=== PATIENT | female | born 1940 | race Caucasian/White ===

== ENCOUNTER 2021-08-16 11:25 | Inpatient (IN) ==
[~2021-08-16 11:25] MED LIST: Buffered Lidocaine 1% SYRIN 1 ml INTRADERM ONE; Ertapenem 1 GM in NS 0.9% 50 ML BAG IVPB SCH; Lactated Ringers 1000 ml BAG 1,000 ML IV SCH; Scopolamine 1 mg/72hr PATCH TRANSDERM ONE
[2021-08-16] MEDS ORDERED: Heparin 5000 UNITS/ML 1 mL VIAL ONE (11:53)
[2021-08-16] MEDS ORDERED: Scopolamine 1 mg/72hr PATCH ONE (11:53)
[2021-08-16] MEDS ORDERED: Lidocaine 2% PF 5 ML VIAL ONE (13:02)
[2021-08-16] MEDS ORDERED: fentaNYL 100 mcg/2 ml 50 MCG/ML VIAL ONE ×3 (13:02→18:04)
[2021-08-16] MEDS ORDERED: Propofol 10 MG/ML 20 ML BTL ONE (13:02)
[2021-08-16] MEDS ORDERED: Bupivacaine 0.25% w/EPI 10 ML SDV ONE (13:03)
[2021-08-16] MEDS ORDERED: Lidocaine 4 MG/ML IV PREMIX 2,000 MG/500 ML BAG IV ONE (13:15)
[2021-08-16] MEDS ORDERED: Rocuronium 50 mg VIAL 10 mg/ml 5 ml VIAL (50 mg) ONE (13:15)
[2021-08-16] MEDS ORDERED: Etomidate 20 mg/10 ml 2 MG/ML 10 ml VIAL ONE (14:08)
[2021-08-16] MEDS ORDERED: EPHEDrine (Pressors) 50 MG/ML VIAL ONE (15:33)
[2021-08-16] MEDS ORDERED: Glycopyrrolate IV 0.2 MG/ML 1 ML VIAL ONE (16:46)
[2021-08-16] MEDS ORDERED: Dexamethasone IV 4 MG/ML VIAL 1 ml VIAL ONE (17:13)
[2021-08-16] MEDS ORDERED: Acetaminophen IV 1 GM/100ML 100 ML IV ONE (17:13)
[2021-08-16] MEDS ORDERED: Ondansetron 4 mg VIAL 2 MG/ML 2 ml VIAL ONE (17:13)
[2021-08-16] MEDS ORDERED: Ondansetron 4 mg VIAL 2 MG/ML 2 ml VIAL IV PRN ×2 (17:27→17:55)
[2021-08-16] MEDS ORDERED: Albuterol/Ipratropium NEB.SOL (2.5/0.5 MG) 3 ML NEB.SOLN INH PRN (17:31)
[2021-08-16] MEDS ORDERED: Albuterol HFA INHALER 8 gm MDI INH PRN (17:40)
[2021-08-16] MEDS ORDERED: HYDROmorphone 1 MG/1 ML SYRINGE IV PRN (17:55)
[2021-08-16] MEDS ORDERED: diPHENhydraMINE IV 50 MG/ML 1 ml VIAL (BENADRYL) IV PRN (17:55)
[2021-08-16] MEDS ORDERED: Naloxone 0.4 mg VIAL 0.4 mg/ml 1 ml VIAL IV PRN (17:55)
[2021-08-16] MEDS ORDERED: DiMENhydriNATE IV 50 mg/ml 1 ml VIAL IV PUSH PRN (17:55)
[2021-08-16] MEDS: fentaNYL 100 mcg/2 ml 50 MCG/ML VIAL IV PRN ×2 (18:05→18:33)
[2021-08-16] MEDS ORDERED: HYDROmorphone 0.5 MG/0.5 ML SYRINGE IV SLOW PU PRN (20:11)
[2021-08-16] MEDS ORDERED: Albuterol 2.5mg/3 ml (0.083%) NEB.SOLN INH PRN (21:32)
[2021-08-16] MEDS: Acetaminophen IV 1 GM/100ML 100 ML IV SCH (23:35)
[2021-08-17] MEDS: Acetaminophen IV 1 GM/100ML 100 ML IV SCH ×3 (06:19→22:20)
[2021-08-17 08:01] LABS: ABS Lymphocytes 1.3 10^3/ul (1.0-4.8); ABS Monocytes 0.6 10^3/ul (0-0.8); ABS Neutrophils 5.9 10^3/ul (1.5-7.7); Eosinophil % 0.2 %; Hematocrit 27 % (35-47); Hemoglobin 8.6 g/dL (12.0-16.0); Lymphocyte % 16.4 %; Mean Corpuscular HGB Conc 32 g/dL (31-36); Mean Corpuscular Hemoglobin 27 pg (27-31); Mean Corpuscular Volume 84 fL (80-97); Mean Platelet Volume 7.3 fL (7.4-10.4); Platelet Count 278 10^3/uL (150-450); Red Blood Count 3.19 10^6 /uL (3.70-4.87); Red Cell Distribution Width 22 % (10-15); White Blood Count 7.8 10^3/uL (3.5-10.8)
[2021-08-17] MEDS: Mometasone/Formoter 100/5 MDI INH SCH ×3 (08:44→20:01)
[2021-08-17 08:55] LABS: Calcium 8.3 mg/dL (8.6-10.3); Potassium 3.2 mmol/L (3.5-5.0); eGFR CKD-EPI 69.6 (>60)
[2021-08-17] MEDS: Enoxaparin 30 MG/0.3 ML SYR SUBCUT SCH (10:04)
[2021-08-17] MEDS: NS 0.9% 500 ml BAG 500 ML IV ONE ×2 (19:08→21:48)
[2021-08-17] MEDS ORDERED: D5W 1/2 NS KCl 20 meq 1000 ml 1,000 ML IV SCH (20:00)
[2021-08-18] MEDS: Acetaminophen IV 1 GM/100ML 100 ML IV SCH ×3 (05:24→22:20)
[2021-08-18 06:00] LABS: ABS Eosinophils 0.2 10^3/ul (0-0.6); ABS Lymphocytes 1.4 10^3/ul (1.0-4.8); ABS Monocytes 0.6 10^3/ul (0-0.8); ABS Neutrophils 6.6 10^3/ul (1.5-7.7); Eosinophil % 1.9 %; Hematocrit 26 % (35-47); Hemoglobin 8.3 g/dL (12.0-16.0); Mean Corpuscular HGB Conc 32 g/dL (31-36); Mean Corpuscular Hemoglobin 27 pg (27-31); Mean Corpuscular Volume 85 fL (80-97); Mean Platelet Volume 7.5 fL (7.4-10.4); Platelet Count 263 10^3/uL (150-450); Red Blood Count 3.04 10^6 /uL (3.70-4.87); Red Cell Distribution Width 22 % (10-15); White Blood Count 8.8 10^3/uL (3.5-10.8)
[2021-08-18 07:09] LABS: Calcium 7.9 mg/dL (8.6-10.3); Potassium 3.2 mmol/L (3.5-5.0); eGFR CKD-EPI 64.2 (>60)
[2021-08-18] MEDS: Mometasone/Formoter 100/5 MDI INH SCH ×2 (08:49→20:20)
[2021-08-18] MEDS: Enoxaparin 30 MG/0.3 ML SYR SUBCUT SCH (09:58)
[2021-08-18] MEDS: Potassium Chlor 20 meq TAB.ER PO SCH (20:22)
[2021-08-19 05:35] LABS: ABS Eosinophils 0.1 10^3/ul (0-0.6); ABS Lymphocytes 1.7 10^3/ul (1.0-4.8); ABS Monocytes 0.7 10^3/ul (0-0.8); Eosinophil % 1.6 %; Hematocrit 25 % (35-47); Lymphocyte % 19.5 %; Mean Corpuscular HGB Conc 32 g/dL (31-36); Mean Corpuscular Hemoglobin 28 pg (27-31); Mean Corpuscular Volume 86 fL (80-97); Mean Platelet Volume 7.8 fL (7.4-10.4); Platelet Count 245 10^3/uL (150-450); Red Blood Count 2.89 10^6 /uL (3.70-4.87); Red Cell Distribution Width 21 % (10-15); White Blood Count 8.5 10^3/uL (3.5-10.8)
[2021-08-19 05:50] LABS: Calcium 7.7 mg/dL (8.6-10.3); Potassium 3.7 mmol/L (3.5-5.0); eGFR CKD-EPI 64.2 (>60)
[2021-08-19] MEDS: Acetaminophen IV 1 GM/100ML 100 ML IV SCH (05:52)
[2021-08-19] MEDS: Mometasone/Formoter 100/5 MDI INH SCH ×2 (07:59→19:49)
[2021-08-19] MEDS: Potassium Chlor 20 meq TAB.ER PO SCH ×2 (09:38→21:08)
[2021-08-19] MEDS: Enoxaparin 30 MG/0.3 ML SYR SUBCUT SCH (09:39)
[2021-08-20 07:47] VITALS: BP 112/70
[2021-08-20] MEDS: Mometasone/Formoter 100/5 MDI INH SCH (07:54)
[2021-08-20] MEDS: Potassium Chlor 20 meq TAB.ER PO SCH (08:49)
[2021-08-20] MEDS: Enoxaparin 30 MG/0.3 ML SYR SUBCUT SCH (10:08)
== END 2021-08-20 10:45 | disposition home or self-care (01) | DRG 331 ==
LOC: AA 11:25 → SSU 19:57
PROVIDERS: ADMIT Surgery; ATTEND Surgery

== ENCOUNTER 2023-08-16 11:10 | Inpatient (IN) ==
[2023-08-16 11:52] LABS: Venous Bicarbonate HCO3 28.4 mmol/L (24-28)
[2023-08-16 11:56] LABS: ABS Lymphocytes 0.9 10^3/uL (1.0-4.8); ABS Monocytes 1.3 10^3/uL (0.0-0.9); ABS Neutrophils 17.3 10^3/uL (1.5-7.6); ABS Nucleated RBC 0.01 10^3/ul; Hematocrit 33.1 % (35-45); Hemoglobin 10.8 g/dL (11.5-14.3); Lymphocyte % 4.7 %; Mean Corpuscular Hemoglobin 29.1 pg (27-33); Mean Corpuscular Hgb Conc 32.6 g/dL (31-36); Mean Corpuscular Volume 89.1 fL (80-97); Mean Platelet Volume 8.2 fL (7.5-11.2); Platelet Count 379 10^3/uL (150-450); Red Blood Count 3.71 10^6/uL (3.63-4.92); Red Cell Distribution Width 14.9 % (12-17); White Blood Count 19.6 10^3/uL (3.8-11.8)
[2023-08-16 13:20] LABS: Albumin/Globulin Ratio 0.8 (1-3); Calcium 8.7 mg/dL (8.6-10.3); Creatinine, Serum 0.94 mg/dL (0.51-0.95); Globulin 3.9 g/dL (2-4); Potassium 3.7 mmol/L (3.5-5.0); Total Bilirubin 0.7 mg/dL (0.2-1.0); Total Protein 6.9 g/dL (6.4-8.9)
[2023-08-16 13:30] LABS: High Sensitivity Troponin 1 Hr 11 pg/mL (<15)
[2023-08-16] MEDS: Cefepime 2 GM in Dextrose 2 GM/50 ML BAG IV ONE (13:37)
[2023-08-16] MEDS: Azithromycin 500 mg/250 ml NS 500 MG/250 ML BAG IVPB ONE (13:37)
[2023-08-16] MEDS: NS 0.9% 500 ml BAG 500 ML IV ONE (14:22)
[2023-08-16 16:41] LABS: Urine Appearance Turbid; Urine Bilirubin Negative (Negative); Urine Blood Trace (Negative); Urine Color Yellow; Urine Glucose Negative (Negative); Urine Ketones Negative (Negative); Urine Nitrite Negative (Negative); Urine Protein 1+ (>=30 mg/dL) (Negative); Urine Specific Gravity 1.026 (1.002-1.030); Urine Urobilinogen Negative (Negative); Urine pH 5.5 (5.0-8.0)
[2023-08-16 16:49] LABS: Urine Bacteria Absent /HPF (Absent); Urine Red Blood Cell 1+(3-5/hpf) /HPF (0-Trace); Urine Squamous Epithelial Cell Present /HPF (Absent); Urine White Blood Cell Trace(0-5/hpf) /HPF (0-Trace)
[2023-08-16] MEDS ORDERED: Albuterol HFA INHALER 8 gm MDI INH PRN (20:57)
[2023-08-16] MEDS: Simvastatin 20 mg TAB (NF) PO SCH (21:49)
[2023-08-17] MEDS: Acetaminophen IV 1 GM/100ML 1,000 MG/100 ML BAG IV PRN (00:25)
[2023-08-17 06:08] LABS: ABS Lymphocytes 1.4 10^3/uL (1.0-4.8); ABS Monocytes 1.3 10^3/uL (0.0-0.9); Eosinophil % 0.2 %; Hematocrit 30.8 % (35-45); Hemoglobin 10.4 g/dL (11.5-14.3); Lymphocyte % 7.7 %; Mean Corpuscular Hemoglobin 30.2 pg (27-33); Mean Corpuscular Hgb Conc 33.8 g/dL (31-36); Mean Corpuscular Volume 89.4 fL (80-97); Mean Platelet Volume 7.7 fL (7.5-11.2); Platelet Count 421 10^3/uL (150-450); Red Blood Count 3.44 10^6/uL (3.63-4.92); Red Cell Distribution Width 14.8 % (12-17); White Blood Count 17.7 10^3/uL (3.8-11.8)
[2023-08-17 06:21] LABS: Albumin 2.8 g/dL (3.2-5.2); Albumin/Globulin Ratio 0.7 (1-3); Calcium 8.6 mg/dL (8.6-10.3); Creatinine, Serum 0.86 mg/dL (0.51-0.95); Globulin 3.9 g/dL (2-4); Potassium 3.5 mmol/L (3.5-5.0); Total Bilirubin 0.5 mg/dL (0.2-1.0); Total Protein 6.7 g/dL (6.4-8.9); eGFR CKD-EPI 67.8 (>60)
[2023-08-17] MEDS: CMCS:FLUTICAS/UMECLI/VILANT 100-62.5-25 MDI (NF) INH SCH (07:39)
[2023-08-17] MEDS: Enoxaparin 40 MG/0.4 ML SYR SUBCUT SCH (09:49)
[2023-08-17] MEDS: Spironolactone/HCTZ 25-25 mg PO SCH (09:53)
[2023-08-17 10:48] LABS: Hepatitis B Surface Antigen Nonreactive (Nonreactive)
[2023-08-17 10:53] LABS: Hepatitis A Ab IgM Negative (Negative); Hepatitis B Core IgM Nonreactive (Nonreactive)
[2023-08-17 11:05] LABS: Hepatitis C Antibody Negative (Negative)
[2023-08-17] MEDS: cefTRIAXone 1 gm/50 mL D5W 1 GM/50 ML BAG IV SCH (15:03)
[2023-08-18 07:15] LABS: ABS Eosinophils 0.1 10^3/uL (0.0-0.5); ABS Lymphocytes 1.7 10^3/uL (1.0-4.8); ABS Monocytes 1.1 10^3/uL (0.0-0.9); Eosinophil % 0.4 %; Hemoglobin 10.3 g/dL (11.5-14.3); Lymphocyte % 10.6 %; Mean Corpuscular Hemoglobin 29.5 pg (27-33); Mean Corpuscular Hgb Conc 33.2 g/dL (31-36); Mean Corpuscular Volume 88.8 fL (80-97); Mean Platelet Volume 7.6 fL (7.5-11.2); Platelet Count 448 10^3/uL (150-450); Red Blood Count 3.49 10^6/uL (3.63-4.92); Red Cell Distribution Width 14.8 % (12-17); White Blood Count 15.9 10^3/uL (3.8-11.8)
[2023-08-18 07:35] LABS: Albumin 2.8 g/dL (3.2-5.2); Albumin/Globulin Ratio 0.7 (1-3); Calcium 8.7 mg/dL (8.6-10.3); Creatinine, Serum 0.67 mg/dL (0.51-0.95); Potassium 3.8 mmol/L (3.5-5.0); Total Bilirubin 0.4 mg/dL (0.2-1.0); Total Protein 6.8 g/dL (6.4-8.9); eGFR CKD-EPI 87.8 (>60)
[2023-08-18] MEDS: Morphine 2 MG/ML SYRINGE IV ONE (21:58)
[2023-08-19 06:39] LABS: ABS Eosinophils 0.1 10^3/uL (0.0-0.5); ABS Lymphocytes 1.2 10^3/uL (1.0-4.8); ABS Monocytes 0.9 10^3/uL (0.0-0.9); ABS Neutrophils 10.3 10^3/uL (1.5-7.6); ABS Nucleated RBC 0.02 10^3/ul; Eosinophil % 0.8 %; Hematocrit 31.9 % (35-45); Hemoglobin 10.4 g/dL (11.5-14.3); Lymphocyte % 9.7 %; Mean Corpuscular Hemoglobin 29.5 pg (27-33); Mean Corpuscular Hgb Conc 32.6 g/dL (31-36); Mean Corpuscular Volume 90.5 fL (80-97); Mean Platelet Volume 7.5 fL (7.5-11.2); Nucleated Red Blood Cells % 0.2 %/100WBC (0.0-0.8); Platelet Count 357 10^3/uL (150-450); Red Blood Count 3.53 10^6/uL (3.63-4.92); Red Cell Distribution Width 15.5 % (12-17); White Blood Count 12.6 10^3/uL (3.8-11.8)
[2023-08-19 07:05] LABS: Calcium 8.5 mg/dL (8.6-10.3); Creatinine, Serum 0.7 mg/dL (0.51-0.95); Potassium 4.2 mmol/L (3.5-5.0); eGFR CKD-EPI 86.8 (>60)
[2023-08-20 06:36] LABS: ABS Eosinophils 0.1 10^3/uL (0.0-0.5); ABS Lymphocytes 1.1 10^3/uL (1.0-4.8); ABS Monocytes 0.9 10^3/uL (0.0-0.9); ABS Neutrophils 6.7 10^3/uL (1.5-7.6); ABS Nucleated RBC 0.01 10^3/ul; Eosinophil % 0.7 %; Hematocrit 33.8 % (35-45); Hemoglobin 11.1 g/dL (11.5-14.3); Mean Corpuscular Volume 90.9 fL (80-97); Mean Platelet Volume 7.4 fL (7.5-11.2); Nucleated Red Blood Cells % 0.1 %/100WBC (0.0-0.8); Platelet Count 372 10^3/uL (150-450); Red Blood Count 3.72 10^6/uL (3.63-4.92); Red Cell Distribution Width 15.6 % (12-17); White Blood Count 8.8 10^3/uL (3.8-11.8)
[2023-08-20] MEDS: Nystatin SUSPENSION 100,000 UNITS/ML UDC PO SCH (23:11)
[2023-08-21] MEDS: Furosemide 20 mg/2 ml IV VIAL IV ONE (09:24)
[2023-08-22 07:26] LABS: Calcium 8.8 mg/dL (8.6-10.3); Creatinine, Serum 0.72 mg/dL (0.51-0.95); Potassium 4.3 mmol/L (3.5-5.0); eGFR CKD-EPI 83.9 (>60)
[2023-08-22] MEDS: Furosemide 20 mg/2 ml IV VIAL IV SLOW PU ONE (10:41)
[2023-08-22 11:12] LABS: Rapid COVID-19 Molecular Detected (Undetected)
[2023-08-22 11:44] LABS: Magnesium 1.7 mg/dL (1.9-2.7)
[2023-08-22] MEDS: Albuterol 2.5mg/3 ml (0.083%) NEB.SOLN INH ONE (12:25)
[2023-08-22 12:26] LABS: Albumin 2.9 g/dL (3.2-5.2); Albumin/Globulin Ratio 0.7 (1-3); Globulin 4.2 g/dL (2-4); Total Bilirubin 0.3 mg/dL (0.2-1.0); Total Protein 7.1 g/dL (6.4-8.9)
[2023-08-22 13:13] LABS: INR 1.23 (0.83-1.13)
[2023-08-22] MEDS: Remdesivir 100 mg Vial 200 MG in NS 0.9% 250 ml 210 ML IV ONE (13:33)
[2023-08-23 07:00] LABS: INR 1.13 (0.83-1.13)
[2023-08-23 07:10] LABS: Albumin 2.8 g/dL (3.2-5.2); Albumin/Globulin Ratio 0.7 (1-3); Calcium 8.6 mg/dL (8.6-10.3); Creatinine, Serum 0.77 mg/dL (0.51-0.95); Globulin 4.3 g/dL (2-4); Potassium 4.3 mmol/L (3.5-5.0); Total Bilirubin 0.3 mg/dL (0.2-1.0); Total Protein 7.1 g/dL (6.4-8.9); eGFR CKD-EPI 77.4 (>60)
[2023-08-23] MEDS: Remdesivir 100 mg Vial 100 MG in NS 0.9% 250 ml 230 ML IV SCH (11:27)
[2023-08-24 06:28] LABS: INR 1.24 (0.83-1.13)
[2023-08-24 06:49] LABS: Albumin 2.8 g/dL (3.2-5.2); Albumin/Globulin Ratio 0.7 (1-3); Calcium 8.7 mg/dL (8.6-10.3); Creatinine, Serum 0.66 mg/dL (0.51-0.95); Globulin 3.9 g/dL (2-4); Potassium 4.5 mmol/L (3.5-5.0); Total Bilirubin 0.3 mg/dL (0.2-1.0); Total Protein 6.7 g/dL (6.4-8.9); eGFR CKD-EPI 88.1 (>60)
[2023-08-25 06:57] LABS: INR 1.21 (0.83-1.13)
[2023-08-25 08:28] LABS: Potassium 4.6 mmol/L (3.5-5.0)
[2023-08-25 08:29] LABS: Albumin/Globulin Ratio 0.7 (1-3); Calcium 8.6 mg/dL (8.6-10.3); Creatinine, Serum 0.68 mg/dL (0.51-0.95); Globulin 4.2 g/dL (2-4); Total Bilirubin 0.4 mg/dL (0.2-1.0); Total Protein 7.2 g/dL (6.4-8.9); eGFR CKD-EPI 87.4 (>60)
[2023-08-26 07:30] LABS: INR 1.23 (0.83-1.13)
[2023-08-26 07:40] LABS: Albumin/Globulin Ratio 0.8 (1-3); Calcium 8.7 mg/dL (8.6-10.3); Creatinine, Serum 0.71 mg/dL (0.51-0.95); Globulin 3.9 g/dL (2-4); Potassium 4.2 mmol/L (3.5-5.0); Total Bilirubin 0.4 mg/dL (0.2-1.0); Total Protein 6.9 g/dL (6.4-8.9); eGFR CKD-EPI 85.4 (>60)
[2023-08-27 07:13] LABS: INR 1.18 (0.83-1.13)
[2023-08-27 07:34] LABS: Albumin 3.2 g/dL (3.2-5.2); Albumin/Globulin Ratio 0.8 (1-3); Calcium 8.8 mg/dL (8.6-10.3); Creatinine, Serum 0.85 mg/dL (0.51-0.95); Potassium 4.2 mmol/L (3.5-5.0); Total Bilirubin 0.5 mg/dL (0.2-1.0); Total Protein 7.2 g/dL (6.4-8.9); eGFR CKD-EPI 68.8 (>60)
[2023-08-31] MEDS: Albuterol 2.5mg/3 ml (0.083%) NEB.SOLN INH PRN (08:44)
[2023-08-31 15:07] VITALS: BP 135/56
== END 2023-08-31 18:49 | disposition home or self-care (01) | DRG 193 ==
LOC: ED 11:10 → SUATTDRO 20:30 → EDHOLD 20:30 → MEDTELE 21:58
PROVIDERS: ADMIT Internal Medicine; ATTEND Hospitalist